=== PATIENT | female | born 1990 | race Caucasian/White ===

== ENCOUNTER 2020-05-22 11:23 | Emergency (ER) | payer OTHER ==
[~2020-05-22] VITALS: Ht 152.4 cm; Wt 70.3 kg
[2020-05-22 11:40] VITALS: Ht 152.4 cm; Wt 70.3 kg
[2020-05-22 12:29] LABS: BASOPHIL % 0.5 % (0.2-1.3); PLATELET COUNT 310 x10^3mcL (179-408)
[2020-05-22 14:14] VITALS: BP 139/65
== END 2020-05-22 14:14 | disposition home or self-care (01) ==
LOC: ED 11:23
PROVIDERS: Emergency Medicine
DX: O20.9 Hemorrhage in early pregnancy, unspecified (principal); Z3A.01 Less than 8 weeks gestation of pregnancy